=== PATIENT | female | born 1990 | race Caucasian/White ===

== ENCOUNTER 2016-09-17 02:46 | Emergency (ER) | payer OTHER ==
--- NOTE | 2016-09-17 03:18 | RAD ---
Clinical History : Hypoxemia , MAIN Exam : Portable AP view of the chest 09/17/2016 2:53 AM CDT Comparisons : Portable AP view of the chest May 29, 2016 Findings : There is a stable tracheostomy with its tip at the T3 level. There is retrocardiac airspace disease with a small left pleural effusion. The right lung remains largely clear. The heart is normal in size. The mediastinal contours are normal in appearance. The thoracic spine is age appropriate. The shoulders are unremarkable. Limited evaluation of the upper abdomen demonstrates no gross abnormalities. Impression: 1. Left lower lobe airspace disease with small left effusion. 2. Stable tracheostomy. Electronically signed by: Shikha Pritchett MD 09/17/2016 3:18 AM CDT
[2016-09-17] MEDS: diazePAM 5 MG TAB GT ONE (04:07)
--- NOTE | 2016-09-17 04:49 | ED.PDOC ---
History of Present Illness - General Chief Complaint: Respiratory Problem Stated Complaint: low oxygen sats Time Seen by Provider: 09/17/16 02:53 Source: RN notes reviewed, Vital Signs reviewed, EMS Exam Limitations: clinical condition - History of Present Illness Initial Comments: Patient is a 25 y/o female who is on chronic ventilator treatment for anoxic brain injury sent by [facility] because of low O2 sats (high 80s) for the past 2 days. Unable to ascertain any information from Patient due to clinical condition. Timing/Duration: other - 2 days Severity: moderate Allergies/Adverse Reactions: Allergies NO KNOWN ALLERGY Allergy (Verified 05/29/16 07:01) Home Medications: Ambulatory Orders Acetaminophen [Qc Acetaminophen 8 Hours] 650 mg PO Q6HR PRN 05/29/16 Acidophilus Tab [Lactinex] 4 ea PO QID 05/29/16 Artificial Tear Solution [Soothe Xp/Xtra Protection] 1 fran OP TID PRN 05/29/16 Balsam [place] Oil [Venelex] 1 applic TOP BID 05/29/16 Bisacodyl 10 mg TN DAILY PRN 05/29/16 Clonazepam [Klonopin] 1 mg PO TID 05/29/16 Diazepam [Valium] 10 mg GT TID PRN 05/29/16 Enoxaparin Sodium [Lovenox] 40 mg SUBCU QD 05/29/16 Famotidine 10 mg GT DAILY 05/29/16 Levalbuterol Nebs [Xopenex NEBS] 0.63 mg NEB TID 05/29/16 Levetiracetam 1,500 mg GT BID 05/29/16 Liver Extract [Liver] 500 mg GT DAILY 05/29/16 Lorazepam [Lorazepam Intensol] 2 mg PO Q4HR PRN 05/29/16 Metoprolol Tartrate 25 mg GT BID 05/29/16 Nystatin Powder [Mycostatin] 100,000 unit TOP BID 05/29/16 Ondansetron Tab [Zofran Tab] 4 mg GT Q6HR PRN 05/29/16 Rivaroxaban [Xarelto] 10 mg PO QD 05/29/16 Scopolamine Patch 1.5MG [Transderm-Scop Patch] 1.5 mg TD ONCE 05/29/16 Serum-Derived Bovine Immunoglo [Enteragam] 5 gm GT DAILY 05/29/16 Valproate Sodium [Depakene] 35 ml GT BID 05/29/16 Zinc Oxide (Topical) [Huggies Diaper Rash Cream] 10 % TOP BID 05/29/16 Review of Systems - Review of Systems Unable to Obtain Due To: clinical condition Past Medical History (General) - Patient Medical History Hx Congestive Heart Failure: No - Vaccination History Hx Influenza Vaccination: - UNKNOWN - Activities of Daily Living [facility] - Female History Patient : No Family Medical History - Family History Mother Family History: Unknown Living Status: Still Living Physical Exam - Physical Exam General Appearance: Emaciated, Restless, Unkempt Respiratory: rales, wheezing Cardiovascular/Chest: no edema, no gallop, no murmur, tachycardia Gastrointestinal/Abdominal: normal bowel sounds, soft, other - PEG Extremity: other - muscle rigidity, spasms Neurologic: disoriented x 3, other - Unable to test due to Patient's clinical condition Skin Exam: other - Stage 2 decubitus ulcers to bilateral buttock Comments: When Patient arrived, she was in a puddle of urine and stool. EMS reported that she was this way when they arrived to pick her up. Progress - Results/Orders Results/Orders: 09/17/16 09/17/16 09/17/16 03:40 03:45 04:12 Temperature 98.7 F Pulse Rate [ 131 H 131 H 137 H Right Brachial] Respiratory 12 12 12 Rate Blood Pressure 106/66 130/68 [Right Arm] O2 Sat by Pulse 88 L 90 L Oximetry 09/17/16 03:30 BLOOD CULTURE Stat Laboratory Results WBC 22.3 K/mm3 (4.8-10.8) H* 09/17/16 03:30 RBC 3.97 M/mm3 (4.20-5.40) L 09/17/16 03:30 Hgb 12.2 gm/dL (12.0-16.0) 09/17/16 03:30 Hct 37.2 % (36.0-47.0) 09/17/16 03:30 MCV 93.7 fl (81.0-99.0) 09/17/16 03:30 MCH 30.7 pg (27.0-31.0) 09/17/16 03:30 MCHC 32.9 g/dL (33.0-37.0) L 09/17/16 03:30 RDW 15.0 % (11.5-14.5) H 09/17/16 03:30 Plt Count 372 K/mm3 (130-400) 09/17/16 03:30 MPV 6.9 fl (7.40-10.4) L 09/17/16 03:30 Absolute Neuts (auto) Not Reportable 09/17/16 03:30 Absolute Lymphs (auto) Not Reportable 09/17/16 03:30 Absolute Monos (auto) Not Reportable 09/17/16 03:30 Absolute Eos (auto) Not Reportable 09/17/16 03:30 Neutrophils % Not Reportable 09/17/16 03:30 Neutrophils % (Manual) 84.0 % 09/17/16 03:30 Lymphocytes % Not Reportable 09/17/16 03:30 Lymphocytes % (Manual) 11.0 % 09/17/16 03:30 Monocytes % Not Reportable 09/17/16 03:30 Monocytes % (Manual) 3.0 % 09/17/16 03:30 Eosinophils % Not Reportable 09/17/16 03:30 Basophils % Not Reportable 09/17/16 03:30 Band Neutrophils 1.0 % 09/17/16 03:30 Eosinophils 1.0 % 09/17/16 03:30 Platelet Estimate Normal (NORMAL) 09/17/16 03:30 Normal RBC Morphology Normal rbc morph 09/17/16 03:30 pCO2 50 mmHg (32-45) H 09/17/16 03:42 pO2 52 mmHg (83-108) L 09/17/16 03:42 HCO3 28.0 mmol/L 09/17/16 03:42 ABG pH 7.370 (7.35-7.45) 09/17/16 03:42 ABG O2 Saturation 85.8 % (95.0-99.0) L 09/17/16 03:42 ABG Base Excess 2.4 mmol/L 09/17/16 03:42 ABG Deoxyhemoglobin 14.0 % (0.0-5.0) H 09/17/16 03:42 Oxyhemoglobin % 84.2 % (94.0-98.0) L 09/17/16 03:42 Carboxyhemoglobin % 0.8 % (0.5-1.5) 09/17/16 03:42 Methemoglobin % Sat 1.0 % (0.0-1.5) 09/17/16 03:42 Calc Total Hemoglobin 12.0 g/dL (12.0-16.0) 09/17/16 03:42 Sodium 139 mmol/L (135-145) 09/17/16 03:30 Potassium 3.5 mmol/L (3.6-5.0) L 09/17/16 03:30 Chloride 98 mmol/L (101-111) L 09/17/16 03:30 Carbon Dioxide 31 mmol/L (21-31) 09/17/16 03:30 Anion Gap 13.5 (12-18) 09/17/16 03:30 BUN 8 mg/dL (7-18) 09/17/16 03:30 Creatinine < 0.40 mg/dL (0.6-1.3) L 09/17/16 03:30 BUN/Creatinine Ratio 20.0 (10-20) 09/17/16 03:30 Random Glucose 100 mg/dL (70-105) 09/17/16 03:30 Serum Osmolality 276.0 mOsm/L (275-295) 09/17/16 03:30 Lactic Acid 1.2 mmol/L (0.5-2.2) 09/17/16 03:30 Calcium 9.5 mg/dL (8.4-10.2) 09/17/16 03:30 Total Bilirubin 0.3 mg/dL (0.2-1.0) 09/17/16 03:30 AST 16 IU/L (10-42) 09/17/16 03:30 ALT 10 IU/L (10-60) 09/17/16 03:30 Alkaline Phosphatase 95 IU/L (42-121) 09/17/16 03:30 Serum Total Protein 8.4 gm/dL (6.4-8.2) H 09/17/16 03:30 Albumin 3.2 g/dl (3.2-5.5) 09/17/16 03:30 Globulin 5.2 gm/dL (2.3-3.5) H 09/17/16 03:30 Albumin/Globulin Ratio 0.6 (1.1-1.9) L 09/17/16 03:30 - EKG/XRAY/CT XRAY: chest Xray Comments: LLL airspace disease with effusion Departure - Departure Clinical Impression: Pneumonia, ventilator associated, Hypoxemia, Anoxic encephalopathy syndrome, Multiple sclerosis Time of Disposition: 05:00 Disposition: Transfer to Hospital Home Medications: Ambulatory Orders Acetaminophen [Qc Acetaminophen 8 Hours] 650 mg PO Q6HR PRN 05/29/16 Acidophilus Tab [Lactinex] 4 ea PO QID 05/29/16 Artificial Tear Solution [Soothe Xp/Xtra Protection] 1 fran OP TID PRN 05/29/16 Balsam [place] Oil [Venelex] 1 applic TOP BID 05/29/16 Bisacodyl 10 mg TN DAILY PRN 05/29/16 Clonazepam [Klonopin] 1 mg PO TID 05/29/16 Diazepam [Valium] 10 mg GT TID PRN 05/29/16 Enoxaparin Sodium [Lovenox] 40 mg SUBCU QD 05/29/16 Famotidine 10 mg GT DAILY 05/29/16 Levalbuterol Nebs [Xopenex NEBS] 0.63 mg NEB TID 05/29/16 Levetiracetam 1,500 mg GT BID 05/29/16 Liver Extract [Liver] 500 mg GT DAILY 05/29/16 Lorazepam [Lorazepam Intensol] 2 mg PO Q4HR PRN 05/29/16 Metoprolol Tartrate 25 mg GT BID 05/29/16 Nystatin Powder [Mycostatin] 100,000 unit TOP BID 05/29/16 Ondansetron Tab [Zofran Tab] 4 mg GT Q6HR PRN 05/29/16 Rivaroxaban [Xarelto] 10 mg PO QD 05/29/16 Scopolamine Patch 1.5MG [Transderm-Scop Patch] 1.5 mg TD ONCE 05/29/16 Serum-Derived Bovine Immunoglo [Enteragam] 5 gm GT DAILY 05/29/16 Valproate Sodium [Depakene] 35 ml GT BID 05/29/16 Zinc Oxide (Topical) [Huggies Diaper Rash Cream] 10 % TOP BID 05/29/16 Transfer to Outside Facility - Transfer Information Accepting Provider:: Dr. Peoples Accepting Facility: [facility] Reason for Transfer: specialized care not available
[2016-09-17] MEDS ORDERED: SODIUM CHL 0.9% 50ML MIN-BAG+ 50 ML IVPB ONE (05:07)
[2016-09-17] MEDS ORDERED: CEFEPIME 2 GM VIAL IVPB ONE (05:07)
[2016-09-17] MEDS: CEFEPIME 2 GM in SODIUM CHL 0.9% 50ML MIN-BAG+ 50 ML IVPB ONE (05:09)
[2016-09-17] MEDS ORDERED: WATER FOR INJ 10 ML VIAL INJ ONE (05:11)
[2016-09-17 06:06] VITALS: BP 132/101; TEMP 99.6; O2SAT 99
== END 2016-09-17 06:05 | disposition short-term general hospital (02) ==
LOC: ER 02:46
DX: J18.9 Pneumonia, unspecified organism (principal); R09.02 Hypoxemia; G93.1 Anoxic brain damage, not elsewhere classified; G35 Multiple sclerosis; L89.322 Pressure ulcer of left buttock, stage 2; L89.312 Pressure ulcer of right buttock, stage 2; Z99.11 Dependence on respirator [ventilator] status; Z79.899 Other long term (current) drug therapy; Z79.01 Long term (current) use of anticoagulants
CPT/HCPCS: 36415; 71010; 80053; 83605; 85025; 87040; 87070; 87077; 87186; A4216; J0692; J7050